=== PATIENT | female | born 1980 | race Caucasian/White ===

== ENCOUNTER 2018-06-30 15:25 | Observation (INO) | payer OTHER ==
[~2018-06-30] VITALS: Ht 157.5 cm; Wt 102.1 kg
== END 2018-06-30 16:50 | disposition home or self-care (01) ==
LOC: SPU 15:25
PROVIDERS: ADMIT Obstetrics & Gynecology; ATTEND Obstetrics & Gynecology
DX: Z34.93 Encounter for supervision of normal pregnancy, unspecified, third trimester (principal); Z3A.37 37 weeks gestation of pregnancy
CPT/HCPCS: 76815; 81002; G0378

== ENCOUNTER 2018-07-14 05:30 | Inpatient (IN) | payer OTHER ==
[~2018-07-14] VITALS: Ht 157.5 cm; Wt 104.8 kg
[2018-07-14] MEDS ORDERED: LR 1,000 ML IV SCH (05:32)
[2018-07-14] MEDS ORDERED: LR 1,000 ML IV ONE (05:32)
[2018-07-14] MEDS ORDERED: DINOPROSTONE 10 MG SUPP VG ONE (05:45)
[2018-07-14] MEDS ORDERED: TERBUTALINE SULFATE 1 MG/ML VIAL SUBCUT ONE (05:45)
[2018-07-14] MEDS ORDERED: AMPICILLIN SODIUM 2 GM in NS 100 ML IV ONE (05:45)
[2018-07-14 06:24] VITALS: BP_SYST 138
[2018-07-14 07:16] LABS: BASOPHILS % (AUTO) 0.2 % (0.0-2.0); EOSINOPHILS # (AUTO) 0.1 K/uL (0.0-0.4); EOSINOPHILS % (AUTO) 1.1 % (0.0-4.0); HEMATOCRIT 31.9 % (36-48); HEMOGLOBIN 10.9 g/dL (12.0-16.0); LYMPHOCYTES # (AUTO) 1.6 K/uL (1.0-5.5); LYMPHOCYTES % (AUTO) 13.5 % (20.5-51.5); MEAN CORPUSCULAR HEMOGLOBIN 33 pg (27-31); MEAN CORPUSCULAR HGB CONC 34 % (32-36); MEAN CORPUSCULAR VOLUME 97 fL (79.0-98.0); MONOCYTES # (AUTO) 0.7 K/uL (0.0-1.0); MONOCYTES % (AUTO) 5.9 % (1.7-9.3); NEUTROPHILS # (AUTO) 9.4 K/uL (1.8-7.7); NEUTROPHILS % (AUTO) 79.3 % (40.0-70.0); PLATELET COUNT (AUTO) 288 K/uL (130-430); RED BLOOD CELL COUNT(AUTO) 3.29 MIL/uL (4.2-6.2); RED CELL DISTRIBUTION WIDTH 12.3 % (9.0-15.0); WHITE BLOOD COUNT (AUTO) 11.8 K/uL (4.8-10.8)
[2018-07-14] MEDS ORDERED: AMPICILLIN SODIUM 2 GM VIAL ONE (07:27)
[2018-07-14 07:36] LABS: CALCIUM 9.3 mg/dL (8.4-11.0); CREATININE 0.7 mg/dL (0.55-1.30); POTASSIUM 3.6 mmol/L (3.5-5.1)
[2018-07-14 08:14] LABS: TOTAL BILIRUBIN 0.3 mg/dL (0.0-1.0)
[2018-07-14 08:15] LABS: ALBUMIN 2.3 g/dL (3.4-4.8)
[2018-07-14] MEDS: AMPICILLIN SODIUM 1 GM in NS 50 ML IV SCH ×3 (11:53→20:00)
[2018-07-14] MEDS: NALBUPHINE HCL 10 MG/ML AMP IVP PRN (13:36)
[2018-07-14] MEDS ORDERED: OXYTOCIN/0.9 % SODIUM CHLORIDE 1,000 ML IV SCH (18:31)
[2018-07-14] MEDS ORDERED: OXYTOCIN/0.9 % SODIUM CHLORIDE 1,000 ML IV ONE (18:49)
[2018-07-14] MEDS ORDERED: LIDOCAINE/EPI 1% 1:100000 20 ML VIAL INJ ONE (22:50)
[2018-07-14] MEDS ORDERED: PROPOFOL 200MG/ 20ML VIAL (DIPRIVAN) IV ONE (22:50)
[2018-07-14] MEDS ORDERED: MIDAZOLAM HCL 5 MG/5 ML VIAL IVP ONE (22:50)
[2018-07-14] MEDS ORDERED: LR 1,000 ML IV.SOLN IV ONE (22:50)
[2018-07-14] MEDS ORDERED: NS IRRIG SOLN 1000 ML IR ONE (22:50)
[2018-07-14] MEDS ORDERED: fentaNYL CITRATE/PF 100 MCG/2 ML AMP ONE (23:16)
[2018-07-14] MEDS ORDERED: ROPIVACAINE 0.2% 100 ML ONE (23:16)
[2018-07-14] MEDS ORDERED: AMPICILLIN SODIUM 1 GM VIAL ONE (23:30)
[2018-07-15] MEDS ORDERED: LR 500 ML IV ONE (00:03)
[2018-07-15] MEDS ORDERED: FENT2mCg/mL-ROPIVA0.2%/NS EPID 150 ML EP SCH (00:15)
[2018-07-15] MEDS ORDERED: AMPICILLIN SODIUM 1 GM VIAL ONE ×3 (00:18→12:53)
[2018-07-15] MEDS ORDERED: ePHEDrine sulfate 50 MG/ML VIAL IVP ONE (00:30)
[2018-07-15] MEDS ORDERED: ePHEDrine sulfate 50 MG/ML VIAL IVP PRN (00:30)
[2018-07-15] MEDS: AMPICILLIN SODIUM 1 GM in NS 50 ML IV SCH ×5 (04:00→12:30)
[2018-07-15] MEDS ORDERED: ROPIVACAINE 0.2% 100 ML ONE ×2 (07:49→15:04)
[2018-07-15] MEDS ORDERED: fentaNYL CITRATE/PF 100 MCG/2 ML AMP ONE ×2 (07:49→15:04)
[2018-07-15] MEDS: NALBUPHINE HCL 10 MG/ML AMP IVP PRN (16:23)
[2018-07-15] MEDS ORDERED: LR 1,000 ML IV ONE (19:37)
[2018-07-15] MEDS ORDERED: CEFAZOLIN 2 GM IVPB PREMIX 50 ML IV ONE (19:45)
[2018-07-15] MEDS ORDERED: NALBUPHINE HCL 10 MG/ML AMP IVP PRN (20:00)
[2018-07-15] MEDS ORDERED: KETOROLAC TROMETHAMINE 30 MG VIAL IVP PRN (20:00)
[2018-07-15] MEDS ORDERED: fentaNYL CITRATE/PF 100 MCG/2 ML AMP IVP PRN ×2 (20:00)
[2018-07-15] MEDS ORDERED: ONDANSETRON HCL 4 MG/2 ML VIAL IVP PRN ×2 (20:00)
[2018-07-15] MEDS ORDERED: NALOXONE HCL 0.4 MG/ML AMP (NARCAN) IVP PRN ×2 (20:00)
[2018-07-15] MEDS ORDERED: DIPHENHYDRAMINE INJ 50 MG/ML VIAL IVP PRN (20:00)
[2018-07-15] MEDS ORDERED: KETOROLAC TROMETHAMINE 60 MG/2 ML VIAL IM PRN (20:00)
[2018-07-15] MEDS ORDERED: MORPHINE SULFATE 10MG/10ML PF AMP EP SCH (20:00)
[2018-07-15] MEDS ORDERED: TEMAZEPAM 15 MG CAPSULE PO PRN (21:00)
[2018-07-15] MEDS ORDERED: LR 1,000 ML IV SCH (22:33)
[2018-07-15] MEDS ORDERED: OXYTOCIN/0.9 % SODIUM CHLORIDE 1,000 ML IV ONE (22:33)
[2018-07-15] MEDS ORDERED: LANOLIN 7 GM OINT. TP PRN (22:45)
[2018-07-15] MEDS ORDERED: MEASLES,MUMPS&RUBELLA VACC/PF 12500 UNIT/0.5 ML VIAL SUBQ PRN (22:45)
[2018-07-15] MEDS ORDERED: SENNOSIDES/DOCUSATE SODIUM 1 TAB TABLET(SENOKOT-S) PO PRN (22:45)
[2018-07-15] MEDS ORDERED: RHO(D) IMMUNE GLOBULIN/MALTOSE 1500 UNITS/1.3 ML (WINHRO) IM PRN (22:45)
[2018-07-15] MEDS ORDERED: ANUSOL 1 EA SUPP.RECT (PREPARATION H) RC PRN (22:45)
[2018-07-15] MEDS ORDERED: DIPH-TET-PERTUS Vaccine 0.5 ML VIAL (ADACEL) I.M. PRN (22:45)
[2018-07-15] MEDS ORDERED: BISACODYL 10 MG/SUPPOSITORY RC PRN (22:45)
[2018-07-15] MEDS ORDERED: OXYCODONE/ACETAMINOPHEN 5-325 TABLET PO PRN ×2 (22:45)
[2018-07-15] MEDS: SIMETHICONE 80 MG TAB.CHEW PO PRN (23:51)
[2018-07-16] MEDS: SIMETHICONE 80 MG TAB.CHEW PO PRN (05:47)
[2018-07-16] MEDS: DOCUSATE SODIUM 100 MG CAPSULE PO PRN ×2 (05:47→23:45)
[2018-07-16] MEDS: IBUPROFEN 600 MG TABLET PO SCH ×5 (05:52→23:45)
[2018-07-16 05:59] VITALS: BP_SYST 140
[2018-07-16 06:55] LABS: BASOPHILS % (AUTO) 0.1 % (0.0-2.0); EOSINOPHILS # (AUTO) 0.1 K/uL (0.0-0.4); EOSINOPHILS % (AUTO) 0.3 % (0.0-4.0); HEMATOCRIT 28.2 % (36-48); HEMOGLOBIN 9.8 g/dL (12.0-16.0); LYMPHOCYTES # (AUTO) 1.3 K/uL (1.0-5.5); LYMPHOCYTES % (AUTO) 7.4 % (20.5-51.5); MEAN CORPUSCULAR HEMOGLOBIN 34 pg (27-31); MEAN CORPUSCULAR HGB CONC 35 % (32-36); MEAN CORPUSCULAR VOLUME 96 fL (79.0-98.0); MONOCYTES % (AUTO) 5.5 % (1.7-9.3); NEUTROPHILS # (AUTO) 15.3 K/uL (1.8-7.7); NEUTROPHILS % (AUTO) 86.7 % (40.0-70.0); PLATELET COUNT (AUTO) 260 K/uL (130-430); RED BLOOD CELL COUNT(AUTO) 2.93 MIL/uL (4.2-6.2); RED CELL DISTRIBUTION WIDTH 12.2 % (9.0-15.0); WHITE BLOOD COUNT (AUTO) 17.7 K/uL (4.8-10.8)
--- NOTE | 2018-07-16 14:16 | NUR ---
Dietitian Recommendations * Recommend continuing regular diet per LP, RD Please refer to Nutrition Assessment for details.
[2018-07-16] MEDS ORDERED: BUPIVACAINE /PF 0.25% 30 ML VIAL INJ ONE (16:47)
[2018-07-17] MEDS: IBUPROFEN 600 MG TABLET PO SCH ×2 (06:51→12:01)
[2018-07-17] MEDS: DOCUSATE SODIUM 100 MG CAPSULE PO PRN (12:01)
== END 2018-07-17 15:15 | disposition home or self-care (01) | DRG 765 ==
LOC: SPU 05:30
PROVIDERS: ADMIT Obstetrics & Gynecology; ATTEND Obstetrics & Gynecology
PROC: 10D00Z1 Extraction of Products of Conception, Low, Open Approach (ICD-10-PCS; principal; 2018-07-15 21:15)
DX: O62.0 Primary inadequate contractions (principal); Z68.41 Body mass index [BMI] 40.0-44.9, adult; O99.214 Obesity complicating childbirth; O99.824 Streptococcus B carrier state complicating childbirth; E66.9 Obesity, unspecified; O11.4 Pre-existing hypertension with pre-eclampsia, complicating childbirth; Z37.0 Single live birth; Z83.3 Family history of diabetes mellitus; Z87.410 Personal history of cervical dysplasia; Z3A.39 39 weeks gestation of pregnancy; Z82.49 Family history of ischemic heart disease and other diseases of the circulatory system; Z83.49 Family history of other endocrine, nutritional and metabolic diseases
CPT/HCPCS: 36415; 80053; 81002-TC; 85025; 86886; 86900; 86901; 94010; 94760; J0290; J0690; J1885; J2250; J2274; J2300; J2590; J2704; J2795; J3010; J3490; J7120